=== PATIENT | male | born 1985 | race Two or more races ===

== ENCOUNTER 2024-05-14 16:11 | Inpatient (IN) | payer OTHER ==
[~2024-05-14] VITALS: Ht 190.5 cm; Wt 140.7 kg
[2024-05-14] MEDS ORDERED: AMLO5TAB88 PO (16:27)
[2024-05-14] MEDS: MECLIZINE 25MG TABLET PO ONE (16:49)
[2024-05-14 18:31] LABS: BASOPHILS % 0.6 % (0.0-2.0); EOSINOPHILS % 0.7 % (0.0-5.0); HEMATOCRIT. 48.7 % (42.0-52.0); LYMPHOCYTES % 14.1 % (20.0-50.0); MEAN CORPUSCULAR HEMOGLOBIN 26.5 pg (28.0-32.0); MEAN CORPUSCULAR HGB CONC 32.8 g/dL (31.0-37.0); MEAN PLATELET VOLUME 9.5 fl (7.4-10.4); MONOCYTES % 5.9 % (2.0-8.0); NEUTROPHILS % 78.7 % (40.0-76.0); PLATELET 226 x1000/uL (130-400); RED BLOOD CELL COUNT 6.01 mill/uL (4.7-6.1); RED CELL DISTRIBUTION WIDTH 13.6 % (11.6-14.6); WHITE BLOOD COUNT 7.8 x1000/uL (4.5-11.0)
[2024-05-14 18:43] LABS: CHLORIDE 106 mEq/L (98-107); POTASSIUM 3.6 mEq/L (3.5-5.1); SODIUM 143 mEq/L (136-145)
[2024-05-14 18:44] LABS: CALCIUM 9.6 mg/dL (8.7-10.4); CARBON DIOXIDE 31 mEq/L (21-32)
[2024-05-14 18:49] LABS: CREATININE 1.2 mg/dL (0.6-1.3); GLUCOSE 103 mg/dL (70-105); UREA NITROGEN BLOOD 15 mg/dL (9-23)
[2024-05-14 20:00] VITALS: BP 198/123; PULSE 102; RESP 19; TEMP 36.8; O2SAT 97
[2024-05-14] MEDS ORDERED: ONDANSETRON HCL 4MG/2ML INJ IV PRN (20:15)
[2024-05-14] MEDS ORDERED: ACETAMINOPHEN 325MG TABLET PO PRN ×2 (20:15)
[2024-05-14] MEDS ORDERED: IPRATROPIUM/ALBUTEROL 0.5-3(2.5)MG/3ML NEB HHN PRN (20:15)
[2024-05-14] MEDS ORDERED: GUAIFENESIN 200MG/10ML SUGAR FREE UDC PO PRN (20:15)
[2024-05-14] MEDS ORDERED: LORAZEPAM 0.5MG TABLET PO PRN (20:15)
[2024-05-14] MEDS ORDERED: DOCUSATE SODIUM 100MG CAPSULE PO PRN (20:15)
[2024-05-14] MEDS: CLONIDINE 0.1MG TABLET PO PRN (20:28)
[2024-05-14] MEDS: HYDRALAZINE 20MG/ML VIAL IV PRN (20:39)
[2024-05-14 21:06] LABS: TROPONIN I HIGH SENSITIVITY 319 ng/L (3.0-53)
[2024-05-14] MEDS: AMLODIPINE 5MG TABLET PO NR (21:11)
[2024-05-14] MEDS ORDERED: ASPIRIN 81MG TABLET PO ONE (21:15)
[2024-05-14] MEDS: ASPIRIN 81MG TABLET PO NR (21:44)
[2024-05-14] MEDS: ATORVASTATIN CALCIUM 40MG TABLET PO SCH (21:44)
[2024-05-14 21:45] VITALS: BP 198/136; PULSE 102; RESP 16; TEMP 36.8
[2024-05-14 21:49] LABS: THYROID STIMULATING HORMONE 1.51 uIU/mL (0.55-4.78)
[2024-05-14 22:05] LABS: T4 FREE 1.34 ng/dL (0.89-1.76)
[2024-05-15] VITALS: BP 166/96; PULSE 87; RESP 18; TEMP 36.6; O2SAT 99
[2024-05-15 00:21] LABS: *AMPHETAMINES SCREEN URINE NEGATIVE (NEGATIVE); *BARBITURATES SCREEN URINE NEGATIVE (NEGATIVE); *BENZODIAZEPINES SCREEN URINE NEGATIVE (NEGATIVE); *COCAINE SCREEN URINE NEGATIVE (NEGATIVE); CANNABINOID URINE SCREEN NEGATIVE (NEGATIVE); ECSTASY MDMA SCREEN URINE NEGATIVE (NEGATIVE); METHADONE URINE SCREEN NEGATIVE (NEGATIVE); OPIATES URINE SCREEN NEGATIVE (NEGATIVE); PHENCYCLIDINE URINE SCREEN NEGATIVE (NEGATIVE)
[2024-05-15 02:14] LABS: TROPONIN I HIGH SENSITIVITY 284 ng/L (3.0-53)
[2024-05-15 03:10] LABS: CLARITY URINE CLEAR (CLEAR); COLOR URINE YELLOW (YELLOW); SPECIFIC GRAVITY URINE 1.015 (1.005-1.030)
[2024-05-15 03:11] LABS: GLUCOSE URINE NEGATIVE (NEGATIVE); KETONES URINE NEGATIVE (NEGATIVE); LEUKOCYTE ESTERASE URINE NEGATIVE (NEGATIVE); NITRITE URINE NEGATIVE (NEGATIVE); OCCULT BLOOD URINE NEGATIVE (NEGATIVE); PROTEIN URINE NEGATIVE (NEGATIVE); UROBILINOGEN URINE 0.2 E.U./dL (0.2-1.0)
[2024-05-15 04:00] VITALS: BP 141/91; PULSE 87; RESP 20; TEMP 36.8; O2SAT 96
[2024-05-15 06:16] LABS: CHLORIDE 105 mEq/L (98-107); POTASSIUM 3.2 mEq/L (3.5-5.1); SODIUM 141 mEq/L (136-145)
[2024-05-15 06:17] LABS: CALCIUM 9.4 mg/dL (8.7-10.4); CARBON DIOXIDE 29 mEq/L (21-32)
[2024-05-15 06:22] LABS: CREATININE 0.9 mg/dL (0.6-1.3); GLUCOSE 92 mg/dL (70-105); UREA NITROGEN BLOOD 13 mg/dL (9-23)
[2024-05-15 07:24] LABS: BASOPHILS % 0.8 % (0.0-2.0); DIFFERENTIAL COMMENT 0; EOSINOPHILS % 1.8 % (0.0-5.0); HEMATOCRIT. 47.4 % (42.0-52.0); HEMOGLOBIN. 15.5 g/dL (14.0-18.0); LYMPHOCYTES % 34.3 % (20.0-50.0); MEAN CORPUSCULAR HEMOGLOBIN 26.3 pg (28.0-32.0); MEAN CORPUSCULAR HGB CONC 32.7 g/dL (31.0-37.0); MEAN CORPUSCULAR VOLUME 80.5 fL (80.0-94.0); MONOCYTES % 7.1 % (2.0-8.0); PLATELET 230 x1000/uL (130-400); RED BLOOD CELL COUNT 5.89 mill/uL (4.7-6.1); RED CELL DISTRIBUTION WIDTH 13.6 % (11.6-14.6); WHITE BLOOD COUNT 6.2 x1000/uL (4.5-11.0)
[2024-05-15 08:00] VITALS: BP 177/116; PULSE 86; RESP 18; TEMP 36.6; O2SAT 96
[2024-05-15 08:26] LABS: TROPONIN I HIGH SENSITIVITY 313 ng/L (3.0-53)
[2024-05-15] MEDS: AMLODIPINE 10MG TABLET PO SCH (08:51)
[2024-05-15] MEDS: ASPIRIN 81MG TABLET PO SCH (08:51)
[2024-05-15] MEDS: POTASSIUM CHLORIDE 20MEQ TABLET SR PO SCH (08:51)
[2024-05-15 12:00] VITALS: BP 180/105; PULSE 98; RESP 18; TEMP 36.5; O2SAT 97
[2024-05-15] MEDS: NIFEDIPINE XL 30MG TAB PO SCH (14:29)
[2024-05-15 16:00] VITALS: BP 159/102; PULSE 98; RESP 18; TEMP 36; O2SAT 96
[2024-05-15 17:08] LABS: TROPONIN I HIGH SENSITIVITY 278 ng/L (3.0-53)
[2024-05-15 20:00] VITALS: BP 167/101; PULSE 96; RESP 20; TEMP 36.8; O2SAT 100
[2024-05-15] MEDS: LOSARTAN 50 MG TABLET PO SCH (20:15)
[2024-05-16] VITALS: BP 149/87; PULSE 84; RESP 20; TEMP 36.5; O2SAT 97
[2024-05-16 01:11] LABS: TROPONIN I HIGH SENSITIVITY 282 ng/L (3.0-53)
[2024-05-16 04:00] VITALS: BP 144/99; PULSE 95; RESP 20; TEMP 36.8; O2SAT 97
[2024-05-16 08:00] VITALS: BP 123/81; PULSE 81; RESP 18; TEMP 36.4; O2SAT 97
[2024-05-16 12:00] VITALS: BP 117/66; PULSE 82; RESP 18; TEMP 36.4; O2SAT 96
[2024-05-16] MEDS ORDERED: LOSA50TA41 PO (12:48)
[2024-05-16] MEDS ORDERED: LIP40 PO (12:48)
[2024-05-16 14:57] VITALS: BP 117/66; PULSE 82; TEMP 97.6; O2SAT 97
[2024-05-16 16:00] VITALS: BP 143/92; PULSE 89; RESP 17; TEMP 36.3; O2SAT 97
== END 2024-05-16 19:37 | disposition home or self-care (01) | DRG 149 ==
LOC: ER 16:11 → EDBEDREQ 18:36 → 8WST 21:43
PROVIDERS: ADMIT Hospitalist; ATTEND Hospitalist
DX: H81.13 Benign paroxysmal vertigo, bilateral (principal); I21.A1 Myocardial infarction type 2; I16.1 Hypertensive emergency; E78.5 Hyperlipidemia, unspecified; E66.9 Obesity, unspecified; I10 Essential (primary) hypertension; Z68.31 Body mass index [BMI] 31.0-31.9, adult; Z82.49 Family history of ischemic heart disease and other diseases of the circulatory system
CPT/HCPCS: 36415; 71045; 80048; 80061; 80305; 81003; 82533; 83036; 83835; 84439; 84443; 84484; 85025; 93005; 99291; A4606; A4663; J0360; J8597